=== PATIENT | male | born 1985 | race Caucasian/White ===

== ENCOUNTER → 2020-04-26 | Outpatient (CLI) | payer OTHER, SELFPAY ==
[2020-04-26 11:31] LABS: EST Glomerular Filtration Rate 81 mL/min (>60); Est Glom Filt Rate - Afr Amer 98 mL/min (>60)
[2020-04-26 12:03] LABS: 24 Hour Urine Protein 140.4 mg/24HR (<150 MG/24HR); 24HR. UA Prot. Total Volume 1025 mL; Creat.Clear Total Volume 1025 mL; Creatinine Clearance 145 ml/min (100-200); Creatinine Serum Creat 1.1 mg/dL (0.8-1.3); EST Glomerular Filtration Rate 81 mL/min (>60); Est Glom Filt Rate - Afr Amer 98 mL/min (>60); Urine Protein (24 Hour) 13.7 mg/dL (<11.9); Urine Sodium 153 mmol/L (Not Establ.)
== END | disposition home or self-care (01) ==
LOC: LAB 09:59
PROVIDERS: Visit Provider Internal Medicine Nephrology
DX: R80.1 Persistent proteinuria, unspecified (principal)
CPT/HCPCS: 36415; 81050; 82565; 82575; 84133; 84156; 84300